=== PATIENT | male | born 1965 | race Asian ===

== ENCOUNTER 2020-09-27 11:30 | Outpatient (REF) | payer MEDICARE, MEDICAID, SELFPAY ==
--- NOTE | 2020-09-27 | US_ITS ---
EXAMINATION: US RETROPERITONEAL LIMITED (RENAL ONLY) CLINICAL INFORMATION: Renal stone. COMPARISON: CT abdomen and pelvis without contrast 02/18/2020 TECHNIQUE: Routine quick-scale imaging of kidneys is performed. FINDINGS: RIGHT KIDNEY: 12.0 x 5.2 x 5.9 cm (SAG x AP x TRV). The kidney is normal in size, contour, and echogenicity. Renal cortical thickness is normal. There are no echogenic stones, cyst or hydronephrosis. LEFT KIDNEY: 12.4 x 5.0 x 4.6 cm (SAG x AP x TRV). The kidney is normal in size, contour, and echogenicity. Renal cortical thickness is normal. No hydronephrosis. There is an anechoic cyst with septation in the lower pole measuring 0.6 x 0.8 x 0.6 cm. Previously, it measured 1.1 x 0.8 x 1.0 cm. There is an echogenic stone in the midpole measuring 0.3 x 0.3 x 0.3 cm. Previously, it measured 0.4 x 0.4 x 0.4 cm. No additional echogenic stones seen. There is no caliectasis. US/US renal BI IMPRESSION: Complex cyst lower pole left kidney. No major change from previous study. Nonobstructive echogenic stone midpole left kidney, stable. The right kidney is unremarkable.
== END 2020-09-27 11:31 | disposition home or self-care (01) ==
LOC: HO.HMGCX 11:30
PROVIDERS: PCP Internal Medicine; Visit Provider Urology
DX: N20.0 Calculus of kidney (principal)
CPT/HCPCS: 76775

== ENCOUNTER → 2020-12-20 14:18 | Outpatient (BNVA) | payer MEDICARE, MEDICAID, SELFPAY | PROVIDERS: PCP Internal Medicine; Visit Provider Urology | DX: N20.0 Calculus of kidney (principal); N28.1 Cyst of kidney, acquired | CPT/HCPCS: Q3014 ==

== ENCOUNTER 2021-12-11 13:01 | Outpatient (REF) | payer MEDICARE, MEDICAID, SELFPAY ==
--- NOTE | ~2021-12-11 | US_ITS ---
EXAMINATION: US RETROPERITONEAL LIMITED (RENAL ONLY) CLINICAL INFORMATION: Calculus of kidney. COMPARISON: Ultrasound renal 09/27/2020 and 03/19/2020. KUB 03/07/2020. CT abdomen/pelvis 02/18/2020. TECHNIQUE: Real-time imaging of the kidneys. FINDINGS: RIGHT KIDNEY: 11.6 x 6.0 x 6.4 cm (SAG x AP x TRV). The kidney is normal in size, contour, and echogenicity. Renal cortical thickness is normal. No focal parenchymal lesions or hydronephrosis. Within the lower pole, there is a 2 mm echogenic focus which may be related to a small calculus or vessel interface. LEFT KIDNEY: 10.8 x 5.9 x 5.4 cm (SAG x AP x TRV). The kidney is normal in size, contour, and echogenicity. Renal cortical thickness is normal. No renal hydronephrosis. Within the lower pole, there is a complex thinly septated cyst measuring approximately 1.4 x 0.9 x 0.9 cm in size. There is question of a small wall calcification being present, as well. Within the lower pole, there is a 2 x 3 x 3 mm echogenic focus likely representing a small nonobstructing calculus. Within the midpole, there is a 2 x 4 x 5 mm echogenic focus likely representing a nonobstructing calculus. Within the upper pole, there is a 3 x 5 x 3 mm echogenic focus which may represent cortical calcification or, less likely, angiomyolipoma. US/US renal BI IMPRESSION: Bilateral echogenic foci likely representing nonobstructing renal calculi. Left lower pole complex cyst with the appearance of a Bosniak 2 cyst.
== END 2021-12-11 13:02 | disposition home or self-care (01) ==
LOC: HO.HMGCX 13:01
PROVIDERS: Visit Provider Urology
DX: N20.0 Calculus of kidney (principal)
CPT/HCPCS: 76775

== ENCOUNTER → 2021-12-25 14:26 | Outpatient (BNVA) | payer MEDICARE, MEDICAID, SELFPAY | PROVIDERS: PCP Internal Medicine; Visit Provider Urology | DX: N28.1 Cyst of kidney, acquired (principal); N20.0 Calculus of kidney | CPT/HCPCS: Q3014 ==

== ENCOUNTER 2022-12-11 13:47 | Outpatient (REF) | payer MEDICARE, MEDICAID, SELFPAY ==
--- NOTE | ~2022-12-11 | US_ITS ---
EXAMINATION: US RETROPERITONEAL LIMITED (RENAL ONLY) CLINICAL INFORMATION: Cyst of kidney. COMPARISON: Ultrasound renal 12/11/2021 and 09/27/2020. X-ray KUB 03/07/2020. TECHNIQUE: Real-time imaging of the kidneys. FINDINGS: RIGHT KIDNEY: 11.9 x 5.2 x 6.8 cm (SAG x AP x TRV). The kidney is normal in size, contour, and echogenicity. Renal cortical thickness is normal. No focal parenchymal lesions or hydronephrosis. Stable 2 mm nonobstructing right lower pole renal stone. LEFT KIDNEY: 11.8 x 4.7 x 5.0 cm (SAG x AP x TRV). The kidney is normal in size, contour, and echogenicity. Renal cortical thickness is normal. No renal hydronephrosis. Likely benign 1.3 cm left renal cyst with a thin internal septation, no follow-up imaging recommended. Coarse 3 mm parenchymal cortical calcification. 3 mm nonobstructing upper pole renal stone, previously 5 mm. US/US renal BI IMPRESSION: Likely benign 1.3 cm left renal cyst with a thin internal septation, no follow-up imaging recommended. Bilateral nonobstructing stones as detailed above..
== END 2022-12-11 13:48 | disposition home or self-care (01) ==
LOC: HO.HMGCX 13:47
PROVIDERS: Visit Provider Urology
DX: N20.0 Calculus of kidney (principal); N28.1 Cyst of kidney, acquired
CPT/HCPCS: 76775

== ENCOUNTER → 2022-12-30 13:23 | Outpatient (BNVA) | payer MEDICARE, MEDICAID, SELFPAY | PROVIDERS: PCP Physician Assistant Medical; Visit Provider Urology | DX: N20.0 Calculus of kidney (principal) | CPT/HCPCS: 99212 ==

== ENCOUNTER 2023-12-22 12:44 | Outpatient (REF) | payer MEDICARE, MEDICAID, SELFPAY ==
--- NOTE | ~2023-12-22 | US_ITS ---
EXAMINATION: US RETROPERITONEAL LIMITED (RENAL ONLY) CLINICAL INFORMATION: Cyst of kidney, acquired. COMPARISON: Renal ultrasound 12/11/2022 TECHNIQUE: Real-time imaging of the kidneys. FINDINGS: RIGHT KIDNEY: 11.9 x 6.1 x 7.0 cm (SAG x AP x TRV). The kidney is normal in size, contour, and echogenicity. Renal cortical thickness is normal. No focal parenchymal lesions or hydronephrosis. 3 mm nonobstructing mid pole renal stone, previously 2 mm. LEFT KIDNEY: 12.3 x 6.0 x 5.5 cm (SAG x AP x TRV). The kidney is normal in size, contour, and echogenicity. Renal cortical thickness is normal. No hydronephrosis. 4 mm nonobstructing upper pole renal stone previously 3 mm similar to prior. Similar cortical calcification again seen. Likely benign thinly septated renal cyst measuring 1.5 cm, previously 1.3 cm. No follow up imaging is recommended. US/US renal BI IMPRESSION: 1. Bilateral nonobstructing renal stones measuring up to 4 mm similar to prior. 2. Likely benign thinly septated renal cyst measuring 1.5 cm, previously 1.3 cm. No follow up imaging is recommended.
== END 2023-12-22 12:45 | disposition home or self-care (01) ==
LOC: HO.HMGCX 12:44
PROVIDERS: PCP Physician Assistant Medical; Visit Provider Urology
DX: N28.1 Cyst of kidney, acquired (principal)
CPT/HCPCS: 76775

== ENCOUNTER 2023-12-30 13:19 | Outpatient (AMB) | payer MEDICARE, MEDICAID, SELFPAY ==
--- NOTE | 2023-12-30 13:33 | MHC.OFFVIS ---
Intake Visit Reasons: 1y/US(set) Intake Note: Patient is Present for Follow Up Urology Medication: Tamsulosin Antibiotic Allergies:none Blood Thinners: None Allergies No Known Allergies [No Known Allergies*] Allergy (Verified 12/30/23 13:38) HPI Comments Details: Josh is very pleasant [place] male. He is a patient of Dr. Richardson. He seen for the following urologic conditions - nephrolithiasis - complex renal cyst Bosniak 2 Yearly follow-up Ultrasound with very small bilateral stone Will follow in 12 months Nephrolithiasis with renal cyst Minimal symptoms Prior imaging - 09/27 renal ultrasound, on complex cyst on left 2x 4 mm stones - 11/26 renal ultrasound, stable complex cyst on left, small stone right, 5 mm stone left - 11/27 renal ultrasound, 1.3 cm cyst complex stable, small stone - 11/28 renal ultrasound, stable cyst, small stone 2 mm bilateral Previously managed with imaging surveillance Discussed adequate fluid intake with lemon water therapy Review in 12 months imaging FOR[facility]LY [facility], [facility] Medical History Renal stones Review of Systems Const Denies chills and Denies fever(s) Card Reports no additional complaints and Denies syncope Resp Denies cough GI Denies abdominal pain and Denies heartburn Reports as per HPI and Denies change in libido Neuro Denies syncope Psych Denies change in libido Endo Denies change in libido Physical Exam Const General: cooperative, healthy appearing, comfortable and no acute distress Orientation/consciousness: patient oriented x3 HEENT Face and sinus: Yes normal facial exam Mouth: moist mucous membranes Neck Neck: Yes normal visual inspection, Yes full ROM and Yes trachea midline Chest Chest palpation & inspection: normal inspection of the chest Resp Effort & Inspection: normal respiratory effort, able to speak in complete sentences and no respiratory distress GI Inspection: Yes normal to inspection Back/Spine/Pelvis Cervical Spine: normal cervical lordosis Thoracic/Lumbar Spine: thoracic and lumbar spine normal to inspection Skin General skin exam: no rashes or lesions noted Neuro General: patient oriented x3, gait normal, tone normal and moves all extremities Extrem General: Yes normal to inspection and Yes capillary refill normal Assessment & Plan Assessment & Plan (1) Renal stones: Code(s): N20.0 - Calculus of kidney Category: Medical Plan Twelve month follow-up renal ultrasound Orders: Orders US renal BI 12 Months N20.0 - Calculus of kidney Patient Instructions: Imaging studies, laboratory and physical exam results were discussed and reviewed in detail. No major barriers to patient understanding were identified. An opportunity to ask questions regarding the treatment plan was provided. All questions were answered. The patient expressed understanding and agreement with the above treatment plan. The patient is aware they should contact our office by phone for worsening of their current condition or the appearance of new urologic symptoms. Compliance is encouraged with any medications and followup testing that is ordered. It is a privilege to participate in the urologic care of your patient. If you have any questions or concerns regarding treatment for the above conditions, or other urologic issues, please do not hesitate to contact me. The office telephone contact is [phone]. This note is constructed using voice recognition software. While every effort has been made to ensure accuracy production repairer errors may have been included. Yours sincerely, Dr Moe Penn MD, [facility] - Urology Providers of Expert, Compassionate Care for the Genitourinary System Coding Level of Care Code Est Pt Level 4 (27444) Diagnoses Renal stones N20.0
== END 2023-12-30 14:11 | disposition home or self-care (01) ==
PROVIDERS: Visit Provider Urology
DX: N20.0 Calculus of kidney (principal)
CPT/HCPCS: 99213

== ENCOUNTER → 2023-12-30 13:19 | Outpatient (BNVA) | payer MEDICARE, MEDICAID, SELFPAY | PROVIDERS: Visit Provider Urology | DX: N20.0 Calculus of kidney (principal) | CPT/HCPCS: 99212 ==

== ENCOUNTER 2025-01-19 15:14 | Outpatient (REF) | payer MEDICARE, MEDICAID, SELFPAY ==
--- NOTE | ~2025-01-19 | US_ITS ---
EXAMINATION: US KIDNEY BILATERAL HISTORY: N20.0 - Calculus of kidney TECHNIQUE: Real-time grayscale ultrasound imaging of the kidneys was performed and images were reviewed. COMPARISON: Comparison is made with the prior examination dated 12/22/2023. FINDINGS: Right kidney: The right kidney measures 12.5 x 5.9 x 7.1 cm. Renal parenchymal echotexture and thickness are normal. There are no masses. There is a 3 mm nonobstructing calculus at the lower pole. There is no hydronephrosis. Left Kidney: The left kidney measures 12.3 x 6.3 x 4.9 cm. Renal parenchymal echotexture and thickness are normal. Again seen is a 10 mm septated cyst at the lower pole. There is a 3 mm nonobstructing calculus in the interpolar region. There is no hydronephrosis. US/US renal BI IMPRESSION: 1. Bilateral nephrolithiasis as described. No hydronephrosis. 2. 10 mm septated left renal cyst without change. Electronically signed by: Pradeep Silveira MD 01/19/2025 03:49 PM EDT
--- OUTSIDE RECORDS SUMMARY | 2025-01-19 15:48 | XMS_ITS | Clinical Summary ---
Author Organization [facility] [address] [place] [address] [place] [phone] Phone Care Team Providers Care Long Winder Tender Name Role Phone Clint Richardson Primary Care Provider [phone] Allergies Active Allergy Reactions Criticality Noted Date Comments Shellfish Derived Itching 04/12/2012 Medications atorvastatin (LIPITOR) 20 mg tablet Take 1 tablet (20 mg total) by mouth 1 (one) time each day. 06/13/20 24 Active famotidine (PEPCID) 40 mg tablet Take 1 tablet (40 mg total) by mouth 2 (two) times a day if needed for heartburn. 06/13/20 24 Active gabapentin (NEURONTIN) 300 mg capsule Take 1 capsule (300 mg total) by mouth 3 (three) times a day. 06/13/20 24 Active hydrocortisone (ANUSOL-HC) 2.5 % rectal cream Insert into the rectum. 06/27/20 24 Active losartan (COZAAR) 25 mg tablet Take 1 tablet (25 mg total) by mouth 1 (one) time each day. 06/13/20 24 Active metoprolol succinate (TOPROL-XL) 50 mg 24 hr tablet Take 1.5 tablets (75 mg total) by mouth 1 (one) time each day. 06/13/20 24 Active omeprazole (PriLOSEC) [address] capsule Take 1 capsule (20 mg total) by mouth 2 (two) times a day. Active sertraline (ZOLOFT) 100 mg tablet Take 1 tablet (100 mg total) by mouth 1 (one) time each day. 06/13/20 24 Active sulindac (CLINORIL) 200 mg tablet Take 1 tablet (200 mg total) by mouth 2 (two) times a day. 06/13/20 24 Active triamcinolone (KENALOG) 0.1 % lotion APPLY TOPICALLY TO THE AFFECTED AREAS ON NECK TWICE DAILY NEEDED. 02/27/20 23 Active predniSONE (DELTASONE) 20 mg tablet Take 3 tabs on the first 3 days, take 2 tabs on the next 3 days, take 1 tab on the next 3 days, then stop. Active fluticasone propionate (FLONASE) 50 mcg/actuation nasal spray SPRAY 2 SPRAYS INTO EACH NOSTRIL EVERY DAY 48 mL 1 12/06/19 25 Active hydrOXYzine HCL (ATARAX) 10 mg tablet TAKE 1 TABLET BY MOUTH EVERY 8 HOURS NEEDED FOR ANXIETY 270 tablet 2 01/17/20 25 Active hydrOXYzine HCL (ATARAX) 10 mg tablet Take 1 tablet (10 mg total) by mouth every 8 (eight) hours if needed. 06/13/20 24 025 Discontinued HYDROcodone-ac etaminophen (NORCO) 5-325 mg per tablet Take 1 tablet by mouth every 6 (six) hours if needed for severe pain for up to 7 days. 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 Negative colonoscopy 03/06/2005. Negative CT scan. Negative ultrasound. Negative upper GI endoscopy 11/25/2001. Biopsies negative for H. pylori infection. Gas, bloating, atypical chest pain with episodes consistent with irritable bowel syndrome. Onset prior to the year 1999. Hemorrhage of gastrointestinal tract 04/21/2007 Overview (08/01/2024): Chronic scant hematochezia. Negative colonoscopy 03/06/2005. Next colonoscopy indicated 2014. IMO update Depression 03/29/2007 Esophageal reflux 03/29/2007 Encounters Date Type Department Care Team Description 12/13/2024 12:45 PM EDT Office Visit Adult Medicine [address] [phone] Clint Richardson, PA Primary hypertension (Primary Dx); Acute bilateral low back pain without sciatica; Need for vaccination against Streptococcus pneumoniae; Anemia, unspecified type; Depression, unspecified depression type; Gastroesophageal reflux disease without esophagitis; Pure hypercholesterolemia 11/01/2024 Telephone Adult Medicine [address] [phone] Clint Richardson PA Labs Only (PATIENT NEEDS LABS) from Last 3 Months Immunizations Name Administration Dates Next Due Influenza Quadravalent, MDCK , 0.5ml, preservative free (Flucelvax) 6mo and older 06/10/2023,06/04/2022,08/15/2021,2018,07/13/2018 Influenza Quadravalent, MDCK , 0.5ml, with preservative (Flucelvax) 6mo and older 08/12/2017 Influenza trivalent, 0.5mL, preservative free (Fluarix; FluLaval; Fluzone) ages 6mo and older (Afluria) 3 years and older 06/13/2024,08/02/2014,07/24/2011,2008 Moderna SARS-CoV-2 COVID-19, mRNA, LNP-S, preservative free 07/15/2021 [employer] SARS-CoV-2 COVID-19, mRNA, LNP-S, preservative free 12/26/2020,12/05/2020 Pneumococcal conjugate 20 va lent (Prevnar 20, PCV 20) 2mo and older 12/13/2024 Td Tetanus diptheria (Tdvax) 7yo and older 06/10/2023,08/21/2003 Tdap Tetanus diptheria acell ular pertussis (Boostrix; Adacel) 7yo and older 04/20/2013 Zoster recombinant (Shingrix ) 19yo and older 04/08/2022,10/28/2021 Surgical History Surgery Date Site/Laterality Comments COLONOSCOPY 5 PROCEDURE: HISTORICAL COLONOSCOPY; COMMENT: Negative ESOPHAGOGASTRODUODENOSCOPY 2 PROCEDURE: WI ESOPHAGOGASTRODUODENOSCOPY TRANSORAL DIAGNOSTIC; COMMENT: Negative; bx neg for H. pylori BACK SURGERY PROCEDURE: HISTORICAL BACK SURGERY; COMMENT: 3 surgery Spinal Fusion with Dr Lemus around 1995. OTHER SURGICAL HISTORY PROCEDURE: HISTORY OTHER; COMMENT: hemorhoid surgery COLONOSCOPY 7 PROCEDURE: HISTORICAL COLONOSCOPY; COMMENT: normal UPPER GASTROINTESTINAL ENDOSCOPY 05/2020 PROCEDURE: WI UPPER GI ENDOSCOPY PERFORMED; COMMENT: done for possible h pylori infection Medical History Medical History Date Comments Other unspecified back disorder DX:Other unspecified back disorder Abdominal pain, generalized 04/21/2007 DX:A bdominal pain, generalized; COMMENT: Chronic functional abdominal pain. Negative colonoscopy 03/06/2005. Negative CT scan. Negative ultrasound. Negative upper GI endoscopy 11/25/2001. Biopsies negative for H. pylori infection. Gas, bloating, atypical chest pain with episodes consistent with irritable bowel syndrome. Onset prior to the year 1999. Hemorrhage of gastrointestin al tract, unspecified 04/21/2007 DX:Hemorrhage of gastrointes tinal tract, unspecified; COMMENT: Chronic scant hematochezia. Negative colonoscopy 03/06/2005. Next colonoscopy indicated 2014. Esophageal reflux DX:Esophageal reflux Positive PPD, treated 07/24/2011 DX:Positiv e PPD, treated Depressive disorder 03/29/2007 DX:Depressiv e disorder Hemorrhage of gastrointestinal tract 04/21/2007 DX:Hemorrhage of gastrointestinal tract; COMMENT: Chronic scant hematochezia. Negative colonoscopy 03/06/2005. Next colonoscopy indicated 2014. IMO update Erectile dysfunction 07/24/2011 DX:Erectile dysfunction Nephrolithiasis 04/20/2013 DX:Nephrolithias is Bilateral low back pain with out sciatica 12/19/2015 DX:Bilateral low back pain w ithout sciatica External hemorrhoid 11/26/2016 DX:External hemorrhoid Pure hypercholesterolemia 11/27/2016 DX:Pur e hypercholesterolemia Palpitations 02/26/2017 DX:Palpitations ETOH abuse 08/23/2018 DX:ETOH abuse Adenomyosis, gallbladder 10/25/2018 DX:Bala omyosis, gallbladder Primary hypertension 01/15/2022 Family History Medical History Relation Name Comments Colon cancer Aunt one aunt with c olon ca dx older than 70. Other: brain tumor Brother 1 Other: hyperlipidemia Brother 2 CABG Father x4 age 68 Cataracts Father Heart attack Father Diabetes Mother Hyperlipidemia Mother colostomy bag Thyroid disease Sister Other: liver cancer Uncle etoh not sure Blindness Neg Hx Glaucoma Neg Hx Macular degeneration Neg Hx Strabismus Neg Hx Relation Name Status Comments Aunt Brother 1 Alive Brother 2 Alive Brother 3 Alive Daughter Alive Father Maternal Grandfather Maternal Grandmother Mother Alive Paternal Grandfather Paternal Grandmother Sister Alive Son Alive Uncle Social History Tobacco Use Types Packs/Day Years Used Date Smoking Tobacco: Never Smokeless Tobacco: Never Tobacco Cessation:Counseling Given: Not Answered Alcohol Use Standard Drinks/Week Comments Yes 0 (1 standard drink = 0.6 oz pur e alcohol) Sex and Gender Information Value Date Recorded Sex Assigned at Not on file Legal Sex Male 8:33 AM EST Gender Identity Not on file Sexual Orientation Not on file Obstetrics History Last Filed Vital Signs Vital Sign Reading Time Taken Comments Blood Pressure 113/67 12/13/2024 12:42 PM EDT Pulse 76 12/13/2024 12:42 PM EDT Temperature 35.7 ??C (96.3 ??F) 12/13/2024 12:42 PM E DT Respiratory Rate 14 12/13/2024 12:42 PM EDT Oxygen Saturation - - Inhaled Oxygen Concentration - - Weight 71.8 kg (158 lb 6.4 oz) 12/13/2024 12:42 PM EDT Height 167.6 cm (5' 6 ) 12/13/2024 12:42 PM EDT Body Mass Index 25.57 12/13/2024 12:42 PM EDT Plan of Treatment Upcoming Encounters Date Type Department Care Team (Late st Contact Info) Description 06/19/2025 12:45 PM EDT Office Visit Adult Medicine [facility] [address] [place] [phone] Clint Richardson PA [address] [place] [address] Health Maintenance Due Date Last Done Comments Hepatitis A Vaccines (1 of 2 - Risk 2-dose series) 1983 Depression Screening 08/16/2022 Medicare Annual Wellness Visit 08/16/2022 Social Influencers of Health Screening 08/16/2022 COVID-19 Vaccine ( season) 2024 12/30/2021, 07/15/2021, 12/26/2020, Additional history exists Hypertension/CHF/CAD Annual BMP Blood Test 11/25/2025 11/25/2024, 12/01/2023 Colorectal Cancer Screening: Colonoscopy 01/21/2027 01/21/2017 Cholesterol Screening (Lipid Panel) 11/25/2029 11/25/2024, 12/01/2023 DTaP,Tdap,and Td Vaccines (4 - Td or Tdap) 06/10/2033 06/10/2023, 04/20/2013, 08/21/2003 RSV Immunization Adult Patients (1 - 1-dose 75+ series) 2039 HIV Screening Completed 04/21/2013 Hepatitis C Screening Completed 05/02/2019 Zoster Vaccines Completed 04/08/2022, 10/28/2021 Influenza Vaccine Completed 06/13/2024, , 06/04/2022, Additional history exists Pneumococcal Vaccine: 50+ Years Completed 12/13/2024 Pneumococcal Vaccine: Pediatrics (0 to 5 Years) and At-Risk Patients (6 to 64 Years) Completed 12/13/2024 HIB Vaccines Aged Out No longer eligi ble based on patient's age to complete this topic HPV Vaccines Aged Out No longer eligi ble based on patient's age to complete this topic Hepatitis B Vaccines Aged Out No long er eligible based on patient's age to complete this topic IPV Vaccines Aged Out No longer eligi ble based on patient's age to complete this topic MMR Vaccines Aged Out No longer eligi ble based on patient's age to complete this topic Meningococcal ACWY Vaccine Aged Out N o longer eligible based on patient's age to complete this topic Meningococcal B Vaccine Aged Out No l onger eligible based on patient's age to complete this topic RSV Immunization Patients Under 20 months Aged Out No longer eligible based on patient's age to complete this topic Varicella Vaccines Aged Out No longer eligible based on patient's age to complete this topic Procedures Procedure Name Priority Date/Time Associated Diagnosis Comments CBC WITH AUTO DIFFERENTIAL Routine 12/13/2024 1:29 PM EDT Anemia, unspecified type CBC AND DIFFERENTIAL Routine 12/13/2024 1:29 PM EDT Anemia, unspecified type IRON AND TIBC Routine 12/13/2024 1:29 PM EDT Anemia, unspecified type FERRITIN Routine 12/13/2024 1:29 PM EDT Anemia, unspecified type VITAMIN B12 Routine 12/13/2024 1:29 PM EDT Anemia, unspecified type FOLATE Routine 12/13/2024 1:29 PM EDT Anemia, unspecified type CBC WITH AUTO DIFFERENTIAL Routine 11/25/2024 10:05 AM EDT Depression, unspecified depression type Primary hypertension Pure hypercholesterolemi a Gastroesophageal reflux disease without esophagitis LIPID PANEL WITH REFLEX TO DIRECT LDL Routine 11/25/2024 10:05 AM EDT Depression, unspecified depression type Primary hypertension Pure hypercholesterolemi a Gastroesophageal reflux disease without esophagitis COMPREHENSIVE METABOLIC PANEL Routine 11/25/2024 10:05 AM EDT Depression, unspecified depression type Primary hypertension Pure hypercholesterolemi a Gastroesophageal reflux disease without esophagitis PROSTATE SPECIFIC ANTIGEN SCREEN Routine 11/25/2024 10:05 AM EDT Depression, unspecified depression type Primary hypertension Pure hypercholesterolemi a Gastroesophageal reflux disease without esophagitis Encounter for screening for malignant neoplasm of prostate CBC AND DIFFERENTIAL Routine 11/25/2024 10:05 AM EDT Depression, unspecified depression type Primary hypertension Pure hypercholesterolemi a Gastroesophageal reflux disease without esophagitis HEPATITIS C SCREENING Routine 05/02/2019 HIV SCREENING Routine 04/21/2013 from Last 3 Months or Most Recently Relevant to Health Maintenance Results * (ABNORMAL) CBC auto differential (12/13/2024 1:29 PM EDT) Only the most recent of2 resultswithin the time period is included. WBC 6.8 4.8 - 10.8 K/mcL LAB HEMETOLOGY METHOD [facility] RBC 4.50 4.50 - 5.50 M/mcL LAB HEMETOLOGY METHOD 12/13/2024 4:45 PM EDT [facility] Hemoglobin 14.1 13.5 - 17.5 g/dL LAB HEMETOLOGY METHOD 12/13/2024 4:45 [facility] Hematocrit 42.4 42.0 - 54.0 % LAB HEMETOLOGY METHOD 12/13/2024 4:45 PM [facility] MCV 95.1 79.0 - 98.0 FL LAB HEMETOLOGY METHOD 12/13/2024 4:45 PM EDT [facility] MCH 31.6 27.0 - 32.0 pcg LAB HEMETOLOGY METHOD 12/13/2024 4:45 [facility] MCHC 33.3 32.0 - 37.0 g/dL LAB HEMETOLOGY METHOD 12/13/2024 4:45 [facility] RDW 11.9 11.0 - 15.0 % LAB HEMETOLOGY METHOD 12/13/2024 4:45 PM EDT [facility] Platelets 181 130 - 400 K/mcL LAB HEMETOLOGY METHOD 12/13/2024 4:45 PM [facility] MPV 12.3(H) 7.0 - 11.0 FL LAB HEMETOLOGY METHOD 12/13/2024 4:45 [facility] NRBC 0.0 <1.0 % LAB HEMETOLOGY METHOD 12/13/2024 4:45 PM [facility] NRBC Absolute 0.00 <0.10 K/mcL LAB HEMETOLOGY METHOD 12/13/2024 4:45 PM [facility] Neutrophils Relative 70.5 % LAB HEMETOLOGY METHOD 12/13/2024 4:45 PM [facility] Lymphocytes Relative 18.1 % LAB HEMETOLOGY METHOD 12/13/2024 4:45 PM [facility] Monocytes Relative 8.4 % LAB HEMETOLOGY METHOD 12/13/2024 4:45 PM [facility] Eosinophils Relative 2.1 % LAB HEMETOLOGY METHOD 12/13/2024 4:45 PM [facility] Basophils Relative 0.6 % LAB HEMETOLOGY METHOD 12/13/2024 4:45 PM [facility] Immature Granulocytes Relative 0.3 % LAB HEMETOLOGY METHOD 12/13/2024 4:45 PM [facility] Neutrophils Absolute 4.78 1.50 - 7.00 K/mcL LAB HEMETOLOGY METHOD 12/13/2024 4:45 PM [facility] Lymphocytes Absolute 1.23 1.00 - 5.00 K/mcL LAB HEMETOLOGY METHOD 12/13/2024 4:45 PM [facility] Monocytes Absolute 0.57 0.20 - 1.00 K/mcL LAB HEMETOLOGY METHOD 12/13/2024 4:45 PM EDT [facility] Eosinophils Absolute 0.14 0.00 - 0.50 K/[facility] LAB HEMETOLOGY METHOD 12/13/2024 4:45 PM EDT [facility] Basophils Absolute 0.04 0.00 - 0.20 K/[facility] LAB HEMETOLOGY METHOD 12/13/2024 4:45 PM EDT [facility] Immature Granulocytes Absolute 0.02 0.00 - 0.03 K/[facility] LAB HEMETOLOGY METHOD 12/13/2024 4:45 PM EDT [facility] Blood Venous blood specimen / Unknown Venipuncture / Unknown 12/13/2024 1:29 PM EDT 12/13/2024 1:34 PM EDT Clint WHITMORE LAB BLOOD ORDERABLES Maribel l Result Performing Organization Address City/[facility]/ZIP Co de Phone Number [facility] [address] [place] [address], [place] [phone] * Iron and TIBC (12/13/2024 1:29 PM EDT) Iron 123 50 - 160 mcg/dL LAB CHEMISTRY METHOD 12/13/2024 6:05 PM EDT [facility] TIBC 384 250 - 450 mcg/dL LAB CHEMISTRY METHOD 12/13/2024 6:05 PM EDT [facility] Iron Saturation 32 20 - 50 % LAB CHEMISTRY METHOD 12/13/2024 6:05 PM EDT [facility] Blood Venous blood specimen / Unknown Venipuncture / Unknown 12/13/2024 1:29 PM EDT 12/13/2024 1:34 PM EDT Clint WHITMORE LAB BLOOD ORDERABLES Maribel l Result [facility] [address] [place] [address], [place] [phone] * (ABNORMAL) Folate (12/13/2024 1:29 PM EDT) [facility] Folate >20.0(H) 2.8 - 17.0 ng/ml LAB CHEMISTRY METHOD 12/13/2024 6:05 PM EDT [facility] Blood Venous blood specimen / Unknown Venipuncture / Unknown 12/13/2024 1:29 PM EDT 12/13/2024 1:34 PM EDT Clint WHITMORE LAB BLOOD ORDERABLES Maribel l Result Performing Organization Address City/[facility]/ZIP Co de Phone Number [facility] [address] [place] [address], [place] [phone] * Ferritin (12/13/2024 1:29 PM EDT) [facility] Ferritin 71 26 - 388 ng/mL LAB CHEMISTRY METHOD 12/13/2024 6:05 PM EDT [facility] Blood Venous blood specimen / Unknown Venipuncture / Unknown 12/13/2024 1:29 PM EDT 12/13/2024 1:34 PM EDT Clint WHITMORE LAB BLOOD ORDERABLES Maribel l Result [facility] [address] [place] [address], [place] [phone] * Vitamin B12 (12/13/2024 1:29 PM EDT) [facility] Vitamin B-12 292 250 - 900 pcg/mL LAB CHEMISTRY METHOD 12/13/2024 6:05 PM EDT [facility] Blood Venous blood specimen / Unknown Venipuncture / Unknown 12/13/2024 1:29 PM EDT 12/13/2024 1:34 PM EDT Clint WHITMORE LAB BLOOD ORDERABLES Maribel l Result Performing Organization Address [facility] Co de Phone Number [facility] [address] [place] [address], [place] [phone] * Prostate specific antigen screen (11/25/2024 10:05 AM EDT) PSA 0.70 0.00 - 4.00 ng/mL LAB CHEMISTRY METHOD 11/25/2024 3:58 PM EDT [facility] Blood Venous blood specimen / Unknown Venipuncture / Unknown 11/25/2024 10:05 AM EDT 11/25/2024 10:05 AM EDT Narrative [facility] - 11/25/2024 3:58 PM EDT The Siemens Advia Ag[employer]oticsaur Chemiluminescent Immunoassay is used. Results obtained with different assay methods or kits cannot be used interchangeably. Results cannot be interpreted as absolute evidence of the presence or absence of malignant disease. Clint WHITMORE LAB BLOOD ORDERABLES Maribel l Result Performing Organization Address [facility] de Phone Number [facility] [address] [place] [address], [place] [phone] * (ABNORMAL) Lipid panel with reflex to direct LDL (11/25/2024 10:05 AM EDT) Cholesterol 197 0 - 200 mg/dL LAB CHEMISTRY METHOD 11/25/2024 2:55 PM EDT [facility] Triglycerides 233(H) 0 - 150 mg/dL LAB CHEMISTRY METHOD 11/25/2024 2:55 PM EDT [facility] HDL 69 >=40 mg/dL LAB CHEMISTRY METHOD 11/25/2024 2:55 PM EDT [facility] LDL Calculated 81 0 - 100 mg/dL LAB CHEMISTRY METHOD 11/25/2024 2:55 PM EDT [facility] VLDL Cholesterol Dimitris 46.6 mg/dL LAB CHEMISTRY METHOD 11/25/2024 2:55 PM EDT [facility] Non HDL Chol. (LDL+VLDL) 128 <145 mg/dL LAB CHEMISTRY METHOD 11/25/2024 2:55 PM EDT [facility] Chol/HDL Ratio 2.9 0.0 - 4.4 LAB CHEMISTRY METHOD 11/25/2024 2:55 PM EDT [facility] Blood Venous blood specimen / Unknown Venipuncture / Unknown 11/25/2024 10:05 AM EDT 11/25/2024 10:05 AM EDT Clint WHITMORE LAB BLOOD ORDERABLES Maribel l Result [facility] [address] [place] [address], * Comprehensive metabolic panel (11/25/2024 10:05 AM EDT) Sodium 141 133 - 145 mmol/L LAB CHEMISTRY METHOD 11/25/2024 2:55 PM [facility] Potassium 3.7 3.5 - 5.5 mmol/L LAB CHEMISTRY METHOD 11/25/2024 2:55 PM [facility] Chloride 108 96 - 110 mmol/L LAB CHEMISTRY METHOD 11/25/2024 2:55 PM T [facility] CO2 27 21 - 32 mmol/L LAB CHEMISTRY METHOD 11/25/2024 2:55 PM [facility] Anion Gap 6 3 - 11 LAB CHEMISTRY METHOD 11/25/2024 2:55 PM [facility] Glucose 97 70 - 100 mg/dL LAB CHEMISTRY METHOD 11/25/2024 2:55 PM [facility] BUN 21 5 - 25 mg/dL LAB CHEMISTRY METHOD 11/25/2024 2:55 PM [facility] Creatinine 0.86 0.70 - 1.30 mg/dL LAB CHEMISTRY METHOD 11/25/2024 2:55 PM [facility] eGFR 99 >=60 mL/min/1. 73m2 LAB CHEMISTRY METHOD 11/25/2024 2:55 PM [facility] Comment:Calculation based on the??Chronic Kidney Disease Epidemiology Collaboration (CKD-EPI) equation refit??without adjustment for race. BUN/Creatinine Ratio 24.4 LAB CHEMISTRY METHOD 11/25/2024 2:55 PM [facility] Calcium 9.3 8.5 - 10.5 mg/dL LAB CHEMISTRY METHOD 11/25/2024 2:55 PM [facility] AST (SGOT) 33 10 - 42 unit/L LAB CHEMISTRY METHOD 11/25/2024 2:55 PM [facility] ALT (SGPT) 57 10 - 60 unit/L LAB CHEMISTRY METHOD 11/25/2024 2:55 PM [facility] Alkaline Phosphatase 93 42 - 121 unit/L LAB CHEMISTRY METHOD 11/25/2024 2:55 PM [facility] Total Protein 7.2 6.0 - 8.0 g/dL LAB CHEMISTRY METHOD 11/25/2024 2:55 PM [facility] Albumin 4.0 3.2 - 5.0 g/dL LAB CHEMISTRY METHOD 11/25/2024 2:55 PM [facility] Total Bilirubin 0.9 0.0 - 1.4 mg/dL LAB CHEMISTRY METHOD 11/25/2024 2:55 PM [facility] Blood Venous blood specimen / Unknown Venipuncture / Unknown 11/25/2024 10:05 AM EDT 11/25/2024 10:05 AM EDT Clint WHITMORE LAB BLOOD ORDERABLES Maribel l Result [facility] [address] [place] [address], * Hepatitis C Screening (05/02/2019) Hepatitis C Screening abstracted Historical Provider HEALTH MAINTENANCE Final Result * HIV Screening (04/21/2013) HIV Screening abstracted us Historical Provider HEALTH MAINTENANCE Final Result from Last 3 Months or Most Recently Relevant to Health Maintenance Insurance MEDICARE MEDICAID - [place] Care Teams Long Winder Tender Relationship Specialty Start Date End Date Clint Richardson PA [address] [place] [id number] PCP - General Internal Medicine 11/25/24
== END 2025-01-19 15:15 | disposition home or self-care (01) ==
LOC: HO.HMGCX 15:14
PROVIDERS: PCP Physician Assistant Medical; Visit Provider Urology
DX: N20.0 Calculus of kidney (principal); N28.1 Cyst of kidney, acquired
CPT/HCPCS: 76775

== ENCOUNTER → 2025-01-19 15:21 | Outpatient (BNV) | payer MEDICARE, MEDICAID, SELFPAY | PROVIDERS: PCP Physician Assistant Medical; Visit Provider Radiology Diagnostic Radiology | DX: N20.0 Calculus of kidney (principal); N28.1 Cyst of kidney, acquired | CPT/HCPCS: 76775 ==

== ENCOUNTER 2025-02-10 14:43 | Outpatient (AMB) | payer MEDICARE, MEDICAID, SELFPAY ==
--- OUTSIDE RECORDS SUMMARY | 2025-02-10 14:46 | XMS_ITS | Clinical Summary ---
Author Organization [facility] [address] [place] [address] [place] [phone] Phone Care Team Providers Care Tile Designer Name Role Phone Clint Richardson Primary Care Provider [phone] Allergies Active Allergy Reactions Criticality Noted Date [...] hours if needed. 06/13/20 24 025 Discontinued Active Problems Problem Noted Date Diagnosed Date [...] 12:45 PM EDT Office Visit Adult Medicine [address] [phone] Clint Richardson, PA Primary hypertension (Primary Dx); Acute bilateral low back pain without sciatica; Need for vaccination against Streptococcus pneumoniae; Anemia, unspecified type; Depression, unspecified depression type; Gastroesophageal reflux disease without esophagitis; Pure hypercholesterolemia from Last 3 Months Immunizations Name Administration Dates Next Due Influenza Quadravalent, MDCK , 0.5ml, preservative free (Flucelvax) 6mo and older 06/10/2023,06/04/2022,08/15/2021,2018,07/13/2018 Influenza Quadravalent, MDCK , 0.5ml, with preservative (Flucelvax) 6mo and older 08/12/2017 Influenza trivalent, 0.5mL, preservative free (Fluarix; FluLaval; Fluzone) ages 6mo and older (Afluria) 3 years and older 06/13/2024,08/02/2014,07/24/2011,2008 Moderna SARS-CoV-2 COVID-19, mRNA, LNP-S, preservative free 07/15/2021 Pfizer SARS-CoV-2 COVID-19, mRNA, LNP-S, preservative free 12/26/2020,12/05/2020 [...] HISTORICAL COLONOSCOPY; COMMENT: Negative ESOPHAGOGASTRODUODENOSCOPY 2 PROCEDURE: CO ESOPHAGOGASTRODUODENOSCOPY TRANSORAL DIAGNOSTIC; COMMENT: Negative; bx neg for H. pylori BACK SURGERY PROCEDURE: HISTORICAL BACK SURGERY; COMMENT: 3 surgery Spinal Fusion with Dr Lemus around 1995. OTHER SURGICAL HISTORY PROCEDURE: HISTORY OTHER; COMMENT: hemorhoid surgery COLONOSCOPY 7 PROCEDURE: HISTORICAL COLONOSCOPY; COMMENT: normal UPPER GASTROINTESTINAL ENDOSCOPY 05/2020 PROCEDURE: CO UPPER GI ENDOSCOPY PERFORMED; COMMENT: done for [...] Comments Colon cancer Aunt one aunt with amanda gil ca dx older than 70. Other: brain [...] 12:45 PM EDT Office Visit Adult Medicine [facility] [address] [place] [address] Clint Richardson PA [address] [place] [address] Health Maintenance Due Date Last Done Comments [...] Procedure Name Priority Date/Time Associated Diagnosis Comments EXTERNAL ULTRASOUND REPORT 01/19/2025 CBC WITH AUTO DIFFERENTIAL Routine 12/13/2024 1:29 [...] Recently Relevant to Health Maintenance Results * External Ultrasound Report (01/19/2025) Anatomical Region Laterality Modality Ultrasound us Provider [facility] US PROCEDURES Final Result * (ABNORMAL) CBC auto differential (12/13/2024 1:29 PM EDT) Only the most recent of2 resultswithin the time period is included. WBC 6.8 4.8 - 10.8 K/mcL LAB HEMETOLOGY METHOD 12/13/2024 4:45 PM EDT [facility] RBC 4.50 4.50 - 5.50 M/mcL LAB HEMETOLOGY METHOD 12/13[facility]2024 [facility] Hemoglobin 14.1 13.5 - 17.5 g/dL LAB HEMETOLOGY METHOD 12/13/2024 4:45 PM EDT [facility] Hematocrit 42.4 42.0 - 54.0 % LAB HEMETOLOGY METHOD 12/13/2024 4:45 PM EDT [facility] MCV 95.1 79.0 - 98.0 FL LAB HEMETOLOGY METHOD 12/13/2024 4:45 PM EDT [facility] MCH 31.6 27.0 - 32.0 pcg LAB HEMETOLOGY METHOD 12/13/2024 4:45 PM EDT [facility] MCHC 33.3 32.0 - 37.0 g/dL LAB HEMETOLOGY METHOD 12/13/2024 4:45 PM [facility] RDW 11.9 11.0 - 15.0 % LAB HEMETOLOGY METHOD 12/13/2024 4:45 PM [facility] Platelets 181 130 - 400 K/mcL LAB HEMETOLOGY METHOD 12/13/2024 4:45 PM [facility] MPV 12.3(H) 7.0 - 11.0 FL LAB HEMETOLOGY METHOD 12/13/2024 4:45 PM [facility] NRBC 0.0 <1.0 % LAB HEMETOLOGY METHOD 12/13/2024 4:45 PM [facility] NRBC Absolute 0.00 <0.10 K/mcL LAB HEMETOLOGY METHOD 12/13/2024 4:45 PM [facility] Neutrophils Relative 70.5 % LAB HEMETOLOGY METHOD 12/13/2024 4:45 PM [facility] Lymphocytes Relative 18.1 % LAB HEMETOLOGY METHOD 12/13/2024 4:45 PM [facility] Monocytes Relative 8.4 % LAB HEMETOLOGY METHOD 12/13/2024 4:45 PM [facility] Eosinophils Relative 2.1 % LAB HEMETOLOGY METHOD 12/13/2024 4:45 PM [facility] Basophils Relative 0.6 % LAB HEMETOLOGY METHOD 12/13/2024 4:45 PM [facility] Immature Granulocytes Relative 0.3 % LAB HEMETOLOGY METHOD 12/13/2024 4:45 PM [facility] Neutrophils Absolute 4.78 1.50 - 7.00 K/mcL LAB HEMETOLOGY METHOD 12/13/2024 4:45 PM [facility] Lymphocytes Absolute 1.23 1.00 - 5.00 K/mcL LAB HEMETOLOGY METHOD 12/13/2024 4:45 PM [facility] Monocytes Absolute 0.57 0.20 - 1.00 K/mcL LAB HEMETOLOGY METHOD 12/13/2024 4:45 PM [facility] Eosinophils Absolute 0.14 0.00 - 0.50 K/mcL LAB HEMETOLOGY METHOD 12/13/2024 4:45 PM EDT [facility] Basophils Absolute 0.04 0.00 - 0.20 K/mcL LAB HEMETOLOGY METHOD 12/13/2024 4:45 PM EDT [facility] Immature Granulocytes Absolute 0.02 0.00 - 0.03 K/mcL LAB HEMETOLOGY METHOD 12/13/2024 4:45 PM EDT [facility] Blood Venous blood specimen / Unknown Venipuncture / Unknown 12/13/2024 1:29 PM EDT 12/13/2024 1:34 PM EDT Clint WHITMORE LAB BLOOD ORDERABLES Maribel l Result Performing Organization Address [facility]/ZIP Co de Phone Number [facility] [address] [place] [address], * Iron and TIBC (12/13/2024 1:29 PM EDT) Pathologist [facility] Iron 123 50 - 160 mcg/dL LAB CHEMISTRY METHOD 12/13/2024 6:05 PM EDT [facility] TIBC 384 250 - 450 mcg/dL LAB CHEMISTRY METHOD 12/13/2024 6:05 PM EDT [facility] Iron Saturation 32 20 - 50 % LAB CHEMISTRY METHOD 12/13/2024 6:05 PM EDT [facility] Blood Venous blood specimen / Unknown Venipuncture / Unknown 12/13/2024 1:29 PM EDT 12/13/2024 1:34 PM EDT Clint WHITMORE LAB BLOOD ORDERABLES Maribel l Result [facility] [address] [place] [address], [place] [phone] * (ABNORMAL) Folate (12/13/2024 1:29 PM EDT) Folate >20.0(H) 2.8 - 17.0 ng/ml LAB CHEMISTRY METHOD 12/13/2024 6:05 PM EDT [facility] Blood Venous blood specimen / Unknown Venipuncture / Unknown 12/13/2024 1:29 PM EDT 12/13/2024 1:34 PM EDT Clint WHITMORE LAB BLOOD ORDERABLES Maribel l Result [facility] [address] [place] [address], [place] [phone] * Ferritin (12/13/2024 1:29 PM EDT) [facility] Ferritin 71 26 - 388 ng/mL LAB CHEMISTRY METHOD 12/13/2024 6:05 PM EDT [facility] Blood Venous blood specimen / Unknown Venipuncture / Unknown 12/13/2024 1:29 PM EDT 12/13/2024 1:34 PM EDT Clint WHITMORE LAB BLOOD ORDERABLES Maribel l Result Performing Organization Address City/[facility]/ZIP Co de Phone Number [facility] [address] [place] [address], [place] [phone] * Vitamin B12 (12/13/2024 1:29 PM EDT) [facility] Vitamin B-12 292 250 - 900 pcg/mL LAB CHEMISTRY METHOD 12/13/2024 6:05 PM EDT [facility] Blood Venous blood specimen / Unknown Venipuncture / Unknown 12/13/2024 1:29 PM EDT 12/13/2024 1:34 PM EDT Clint WHITMORE LAB BLOOD ORDERABLES Maribel l Result [facility] [address] [place] [address], [place] [phone] * Prostate specific antigen screen (11/25/2024 10:05 AM EDT) [facility] PSA 0.70 0.00 - 4.00 ng/mL LAB CHEMISTRY METHOD 11/25/2024 3:58 PM EDT [facility] Blood Venous blood specimen / Unknown Venipuncture / Unknown 11/25/2024 10:05 AM EDT 11/25/2024 10:05 AM EDT Narrative [facility] - 11/25/2024 3:58 PM EDT The [employer] Chemiluminescent Immunoassay is used. Results obtained with different assay methods or kits cannot be used interchangeably. Results cannot be interpreted as absolute evidence of the presence or absence of malignant disease. Clint WHITMORE LAB BLOOD ORDERABLES Maribel monroe Result [facility] [address] [place] [address], [place] [phone] * (ABNORMAL) Lipid panel with reflex to direct LDL (11/25/2024 10:05 AM EDT) [facility] Cholesterol 197 0 - 200 mg/dL LAB CHEMISTRY METHOD 11/25/2024 2:55 PM EDT [facility] Triglycerides 233(H) 0 - 150 mg/dL LAB CHEMISTRY METHOD 11/25/2024 2:55 PM EDT [facility] HDL 69 >=40 mg/dL LAB CHEMISTRY METHOD 11/25/2024 2:55 PM EDT [facility] LDL Calculated 81 0 - 100 mg/dL LAB CHEMISTRY METHOD 11/25/2024 2:55 PM EDT [facility] VLDL Cholesterol Dimitris 46.6 mg/dL LAB CHEMISTRY METHOD 11/25/2024 2:55 PM EDT [facility] Non HDL Chol. (LDL+VLDL) 128 <145 mg/dL LAB CHEMISTRY METHOD 11/25/2024 2:55 PM T [facility] Chol/HDL Ratio 2.9 0.0 - 4.4 LAB CHEMISTRY METHOD 11/25/2024 2:55 PM [facility] Blood Venous blood specimen / Unknown Venipuncture / Unknown 11/25/2024 10:05 AM EDT 11/25/2024 10:05 AM EDT us Clint WHITMORE LAB BLOOD ORDERABLES Maribel l Result [facility] [address] [place] [address], * Comprehensive metabolic panel (11/25/2024 10:05 AM EDT) Sodium 141 133 - 145 mmol/L LAB CHEMISTRY METHOD 11/25/2024 2:55 PM [facility] Potassium 3.7 3.5 - 5.5 mmol/L LAB CHEMISTRY METHOD 11/25/2024 2:55 PM [facility] Chloride 108 96 - 110 mmol/L LAB CHEMISTRY METHOD 11/25/2024 2:55 PM [facility] CO2 27 21 - 32 mmol/L LAB CHEMISTRY METHOD 11/25/2024 2:55 PM [facility] Anion Gap 6 3 - 11 LAB CHEMISTRY METHOD 11/25/2024 2:55 PM [facility] Glucose 97 70 - 100 mg/dL LAB CHEMISTRY METHOD 11/25/2024 2:55 PM [facility] BUN 21 5 - 25 mg/dL LAB CHEMISTRY METHOD 11/25/2024 2:55 PM [facility] Creatinine 0.86 0.70 - 1.30 mg/dL LAB CHEMISTRY METHOD 11/25/2024 2:55 PM [facility] eGFR 99 >=60 mL/min/1. 73m2 LAB CHEMISTRY METHOD 11/25/2024 2:55 PM EDT [facility] Comment:Calculation based on the??Chronic Kidney Disease Epidemiology Collaboration (CKD-EPI) equation refit??without adjustment for race. BUN/Creatinine Ratio 24.4 LAB CHEMISTRY METHOD 11/25/2024 2:55 PM EDT [facility] Calcium 9.3 8.5 - 10.5 mg/dL LAB CHEMISTRY METHOD 11/25/2024 2:55 PM EDT [facility] AST (SGOT) 33 10 - 42 unit/L LAB CHEMISTRY METHOD 11/25/2024 2:55 PM [facility] ALT (SGPT) 57 10 - 60 unit/L LAB CHEMISTRY METHOD 11/25/2024 2:55 PM [facility] Alkaline Phosphatase 93 42 - 121 unit/L LAB CHEMISTRY METHOD 11/25/2024 2:55 PM EDT [facility] Total Protein 7.2 6.0 - 8.0 g/dL LAB CHEMISTRY METHOD 11/25/2024 2:55 PM T [facility] Albumin 4.0 3.2 - 5.0 g/dL LAB CHEMISTRY METHOD 11/25/2024 2:55 PM [facility] Total Bilirubin 0.9 0.0 - 1.4 mg/dL LAB CHEMISTRY METHOD 11/25/2024 2:55 PM T [facility] Blood Venous blood specimen / Unknown Venipuncture / Unknown 11/25/2024 10:05 AM EDT 11/25/2024 10:05 AM EDT us Clint WHITMORE LAB BLOOD ORDERABLES Maribel monroe Result [facility] [address] [place] [address], * Hepatitis C Screening (05/02/2019) Hepatitis C Screening abstracted us Historical Provider HEALTH MAINTENANCE Final Result * HIV Screening (04/21/2013) HIV Screening abstracted us Historical Provider HEALTH MAINTENANCE Final Result from Last 3 Months or Most Recently Relevant to Health Maintenance Insurance MEDICARE MEDICAID - [place] Care Teams Tile Designer Relationship Specialty Start Date End Date Clint Richardson PA [address] [place] [id number] PCP - General Internal Medicine 11/25/24
--- NOTE | 2025-02-10 14:52 | A.OFFVIS_ITS ---
Intake Visit Reasons: 1YR US follow up Intake Note: Patient is Present for 1 year Follow Up/ US Urology Medication: none Antibiotic Allergies:none Blood Thinners: None Commercial Baker Helper Required: No Accompanied by: Self / Same As Patient Allergies No Known Allergies [No Known Allergies*] Allergy (Verified 02/10/25 14:55) HPI Comments Details: Josh is very pleasant Syrian male. He is a patient of Dr. Richardson. He seen for the following urologic conditions - nephrolithiasis - complex renal cyst Bosniak 2 Stable stones for 4 years Check 1 more year and if stable can follow-up p.r.n. Nephrolithiasis with renal cyst Minimal symptoms Prior imaging - 09/27 renal ultrasound, on complex cyst on left 2x 4 mm stones - 11/26 renal ultrasound, stable complex cyst on left, small stone right, 5 mm stone left - 11/27 renal ultrasound, 1.3 cm cyst complex stable, small stone - 11/28 renal ultrasound, stable cyst, small stone 2 mm bilateral - 12/30 renal ultrasound bilateral small stones Previously managed with imaging surveillance Discussed adequate fluid intake with lemon water therapy Review in 12 months imaging [facility] Medical History Renal stones Review of Systems Const Denies chills and Denies fever(s) Card Reports no additional complaints and Denies syncope Resp Denies cough GI Denies abdominal pain and Denies heartburn Reports as per HPI and Denies change in libido Neuro Denies syncope Psych Denies change in libido Endo Denies change in libido Physical Exam Const General: cooperative, healthy appearing, comfortable and no acute distress Orientation/consciousness: patient oriented x3 HEENT Face and sinus: Yes normal facial exam Mouth: moist mucous membranes Neck Neck: Yes normal visual inspection, Yes full ROM and Yes trachea midline Chest Chest palpation & inspection: normal inspection of the chest Resp Effort & Inspection: normal respiratory effort, able to speak in complete sentences and no respiratory distress GI Inspection: Yes normal to inspection Back/Spine/Pelvis Cervical Spine: normal cervical lordosis Thoracic/Lumbar Spine: thoracic and lumbar spine normal to inspection Skin General skin exam: no rashes or lesions noted Neuro General: patient oriented x3, gait normal, tone normal and moves all extremities Extrem General: Yes normal to inspection and Yes capillary refill normal Assessment & Plan Assessment & Plan (1) Renal stones: Code(s): N20.0 - Calculus of kidney Category: Medical Plan Twelve month follow-up renal ultrasound Orders: Orders US renal BI 12 Months N20.0 - Calculus of kidney Patient Instructions: This note is constructed using voice recognition software. While every effort has been made to ensure accuracy process expert errors may have been included. Imaging studies, laboratory and physical exam results were discussed and reviewed in detail. No major barriers to patient understanding were identified. An opportunity to ask questions regarding the treatment plan was provided. All questions were answered. The patient expressed understanding and agreement with the above treatment plan. The patient is aware they should contact our office by phone for worsening of their current condition or the appearance of new urologic symptoms. Compliance is encouraged with any medications and followup testing that is ordered. It is a privilege to participate in the urologic care of your patient. If you have any questions or concerns regarding treatment for the above conditions, or other urologic issues, please do not hesitate to contact me. The office telephone contact is [phone]. Sincerely, Dr Moe Penn MD, [facility] - Urology Compassionate Specialist Care for the Genitourinary System Coding Level of Care Code Est Pt Level 4 (96827) Diagnoses Renal stones N20.0
== END 2025-02-10 15:05 | disposition home or self-care (01) ==
LOC: HO.HUSH 14:44
PROVIDERS: PCP Physician Assistant Medical; Visit Provider Urology
DX: N20.0 Calculus of kidney (principal)
CPT/HCPCS: 99214

== ENCOUNTER → 2025-02-10 14:43 | Outpatient (BNVA) | payer MEDICARE, MEDICAID, SELFPAY | PROVIDERS: PCP Physician Assistant Medical; Visit Provider Urology | DX: N20.0 Calculus of kidney (principal) | CPT/HCPCS: 99212 ==